=== PATIENT | female | born 1970 | race Caucasian/White ===

== ENCOUNTER 2022-07-14 17:56 | Inpatient (IN) | payer OTHER ==
[~2022-07-14] VITALS: Ht 172.7 cm; Wt 209.4 kg
[2022-07-14] MEDS ORDERED: IBUPROFEN 400 MG TAB ONE (18:04)
[2022-07-14] MEDS ORDERED: ACETAMINOPHEN 325 MG TAB ONE (18:04)
[2022-07-14] MEDS ORDERED: CEFEPIME 2 GM in SODIUM CHLORIDE 0.9% 100 ML IV STA (18:20)
[2022-07-14] MEDS ORDERED: ACETAMINOPHEN 1000 MG/100 ML IV STA (18:26)
[2022-07-14] MEDS ORDERED: SODIUM CHLORIDE 0.9% 1000ML 2,000 ML ONE (18:29)
[2022-07-14] MEDS ORDERED: SODIUM CHLORIDE 0.9% IV ONE (18:30)
[2022-07-14 18:35] LABS: BASOPHILS # (AUTO) 0.1 (0.0-0.1); EOSINOPHILS # (AUTO) 0.1 (0.0-0.4); EOSINOPHILS % 0.5 % (0.0-6.0); HEMATOCRIT 45.9 % (34.2-44.1); HEMOGLOBIN 15.7 g/dL (12.0-16.0); LYMPHOCYTES # (AUTO) 0.8 (1.0-3.2); LYMPHOCYTES % 8.8 % (18.0-39.1); MEAN CORPUSCULAR HEMOGLOBIN 28.2 pg (28-32); MEAN CORPUSCULAR HGB CONC 34.2 g/dL (31-35); MEAN CORPUSCULAR VOLUME 82.4 fL (81-99); MONOCYTES # (AUTO) 0.5 (0.2-0.8); MONOCYTES % 5.6 % (4.4-11.3); NEUTROPHILS # (AUTO) 7.9 (2.1-6.9); NEUTROPHILS % 83.2 % (38.7-80.0); PLATELET COUNT 242 x10e3/uL (140-360); RED BLOOD COUNT 5.57 x10e6/uL (3.6-5.1); RED CELL DISTRIBUTION WIDTH 13.7 % (11.7-14.4)
[2022-07-14 18:49] LABS: ALANINE AMINOTRANSFERASE 25 IU/L (0-55); ALBUMIN 3.2 g/dL (3.5-5.0); ALBUMIN/GLOBULIN RATIO 0.6 (0.8-2.0); ALKALINE PHOSPHATASE 106 IU/L (40-150); ANION GAP 23.4 mmol/L (8-16); BLOOD UREA NITROGEN 20 mg/dL (7-26); BUN/CREATININE RATIO 16 (6-25); CALCIUM 9.7 mg/dL (8.4-10.2); CARBON DIOXIDE 15 mmol/L (22-29); CHLORIDE 91 mmol/L (98-107); CREATININE, SERUM 1.23 mg/dL (0.57-1.11); POTASSIUM 4.4 mmol/L (3.5-5.1); SODIUM 125 mmol/L (136-145)
[2022-07-14 18:53] LABS: GLUCOSE 445 mg/dL (74-118)
[2022-07-14] MEDS ORDERED: IBUPROFEN 400 MG TAB PO ONE (19:15)
[2022-07-14] MEDS ORDERED: ACETAMINOPHEN 325 MG TAB PO ONE (19:15)
[2022-07-14] MEDS ORDERED: SODIUM CHLORIDE 0.9% 1000ML 1,000 ML IV ONE (19:15)
[2022-07-14] MEDS ORDERED: Vancomycin IV 2 GM in SODIUM CHLORIDE 0.9% 250ML 250 ML IV SCH (19:30)
[2022-07-14 19:32] LABS: CLARITY,URINE CLOUDY (CLEAR); COLOR,URINE AMBER (YELLOW); LEUKOCYTE ESTERASE ,URINE TRACE (NEGATIVE); NITRITE,URINE NEGATIVE (NEGATIVE); PROTEIN,URINE DIPSTICK >=300 (NEGATIVE)
[2022-07-14 19:33] LABS: KETONES,URINE 2+ (NEGATIVE); URINE UROBILINOGEN 4 mg/dL (0.2 - 1)
[2022-07-14 19:34] LABS: BACTERIA,URINE MANY /HPF; EPITHELIAL CELLS,URINE MANY /LPF; WBC,URINE (MAN) >50 /HPF (0-5)
[2022-07-14] MEDS ORDERED: SODIUM CHLORIDE 0.9% 250ML 250 ML ONE (20:21)
[2022-07-14 21:06] LABS: INR 1.11; PROTHROMBIN TIME 14.8 seconds (11.9-14.5)
[2022-07-14 21:07] LABS: PARTIAL THROMBOPLASTIN TIME 32.8 seconds (23.8-35.5)
[2022-07-14] MEDS ORDERED: INSULIN REGULAR, HUMAN 3ML VL 100 UNIT in SODIUM CHLORIDE 0.45% 100 ML 100 ML IV SCH ×2 (21:30)
[2022-07-14] MEDS ORDERED: DEXTROSE 50% SYRINGE 50 ML IV PRN (21:30)
[2022-07-14] MEDS ORDERED: ZOLPIDEM TARTRATE 5 MG TAB PO PRN (21:30)
[2022-07-14] MEDS: SODIUM CHLORIDE 0.9% 1000ML 1,000 ML IV SCH (22:14)
[2022-07-14 22:33] LABS: ABG HCO3 17 mmol/L (22-26); ABG PCO2 31 mmHg (35-45); ABG PH 7.34 (7.35-7.45); ABG PO2 81 mmHg (80-105); ABG TCO2 17
[2022-07-14] MEDS ORDERED: INSULIN REGULAR, HUMAN 100 UNIT/1 ML ONE (23:43)
[2022-07-14] MEDS ORDERED: SODIUM CHLORIDE 0.9% 100 ML ONE (23:44)
[2022-07-14 23:45] VITALS: BP 155/87; PULSE 87; RESP 16; TEMP 98.4; O2SAT 93
[2022-07-15] VITALS (31 sets, daily range): BP systolic 88–124; BP diastolic 43–98; PULSE 78–112; RESP 0–29; TEMP 98–99.2; O2SAT 76–99
[2022-07-15] MEDS ORDERED: OZEMPIC1 MG/0.71 (00:28)
[2022-07-15] MEDS ORDERED: LISINOPRIL30 MG PO (00:28)
[2022-07-15] MEDS ORDERED: METFORMIN HCL500 MG PO (00:28)
[2022-07-15] MEDS ORDERED: VENLAFAXINE HC150 MG PO (00:28)
[2022-07-15] MEDS ORDERED: GLIMEPIRIDE2 MG PO (00:28)
[2022-07-15] MEDS ORDERED: ALLOPURINOL100 MG PO (00:28)
[2022-07-15] MEDS: SODIUM CHLORIDE 0.9% 1000ML 1,000 ML IV SCH (06:29)
[2022-07-15] MEDS: ACETAMINOPHEN 325 MG TAB PO PRN ×3 (06:29→21:59)
[2022-07-15 07:06] LABS: BASOPHILS # (AUTO) 0.1 (0.0-0.1); BASOPHILS % 0.7 % (0.0-1.0); EOSINOPHILS % 0.1 % (0.0-6.0); HEMATOCRIT 35.7 % (34.2-44.1); HEMOGLOBIN 11.9 g/dL (12.0-16.0); LYMPHOCYTES # (AUTO) 0.6 (1.0-3.2); LYMPHOCYTES % 7.5 % (18.0-39.1); MEAN CORPUSCULAR HGB CONC 33.3 g/dL (31-35); MONOCYTES # (AUTO) 1.2 (0.2-0.8); MONOCYTES % 14.7 % (4.4-11.3); NEUTROPHILS # (AUTO) 6.3 (2.1-6.9); NEUTROPHILS % 76.3 % (38.7-80.0); PLATELET COUNT 179 x10e3/uL (140-360); RED BLOOD COUNT 4.25 x10e6/uL (3.6-5.1); RED CELL DISTRIBUTION WIDTH 13.4 % (11.7-14.4)
[2022-07-15 07:21] LABS: ALBUMIN 2.3 g/dL (3.5-5.0); ALBUMIN/GLOBULIN RATIO 0.6 (0.8-2.0); ANION GAP 13.7 mmol/L (8-16); CREATININE, SERUM 0.92 mg/dL (0.57-1.11); POTASSIUM 3.7 mmol/L (3.5-5.1)
[2022-07-15] MEDS ORDERED: MAGNESIUM SULFATE 2GM/50ML 50 ML IV ONE (08:15)
[2022-07-15] MEDS ORDERED: POTASSIUM CHLORIDE 20MEQ/100ML 200 ML IV ONE (08:15)
[2022-07-15 09:08] LABS: CHOL/HDL RATIO 2.2 (3.0-3.6)
[2022-07-15] MEDS: Vancomycin IV 1 GM in SODIUM CHLORIDE 0.9% 250ML 250 ML IV SCH ×2 (09:34→19:34)
[2022-07-15] MEDS: LISINOPRIL 20 MG TAB PO SCH (09:36)
[2022-07-15 10:46] LABS: BAND NEUTROPHILS % (MANUAL) 11 %; LYMPHOCYTES % (MANUAL) 8 % (19-48); MONOCYTES % (MANUAL) 12 % (3.4-9.0); NEUTROPHILS % (MANUAL) 68 % (40-74); PLATELET ESTIMATE ADEQUATE; PLATELET MORPHOLOGY COMMENT NORMAL
[2022-07-15 14:18] LABS: ALBUMIN 2.5 g/dL (3.5-5.0); ALBUMIN/GLOBULIN RATIO 0.5 (0.8-2.0); ANION GAP 14.3 mmol/L (8-16); CALCIUM 8.6 mg/dL (8.4-10.2); CREATININE, SERUM 0.9 mg/dL (0.57-1.11); POTASSIUM 4.3 mmol/L (3.5-5.1)
[2022-07-15] MEDS: MUPIROCIN 2% OINT 22 GM TUBE TOP SCH (21:04)
[2022-07-15] MEDS: ONDANSETRON HCL INJ 2MG/ML 2ML 2 MG/ML VIAL IV PRN (21:59)
[2022-07-15] MEDS ORDERED: INSULIN REGULAR, HUMAN 100 UNIT/1 ML ONE (22:08)
[2022-07-16] VITALS (15 sets, daily range): BP systolic 95–130; BP diastolic 58–74; PULSE 76–106; RESP 11–21; TEMP 98.6–99; O2SAT 41–100
[2022-07-16] MEDS: ACETAMINOPHEN 325 MG TAB PO PRN (05:32)
[2022-07-16 06:52] LABS: BASOPHILS % 0.6 % (0.0-1.0); EOSINOPHILS % 0.6 % (0.0-6.0); HEMATOCRIT 35.7 % (34.2-44.1); HEMOGLOBIN 11.6 g/dL (12.0-16.0); LYMPHOCYTES # (AUTO) 0.9 (1.0-3.2); LYMPHOCYTES % 12.9 % (18.0-39.1); MEAN CORPUSCULAR HEMOGLOBIN 27.8 pg (28-32); MEAN CORPUSCULAR HGB CONC 32.5 g/dL (31-35); MEAN CORPUSCULAR VOLUME 85.4 fL (81-99); MONOCYTES # (AUTO) 1.1 (0.2-0.8); MONOCYTES % 16.9 % (4.4-11.3); NEUTROPHILS # (AUTO) 4.5 (2.1-6.9); NEUTROPHILS % 68.1 % (38.7-80.0); PLATELET COUNT 164 x10e3/uL (140-360); RED BLOOD COUNT 4.18 x10e6/uL (3.6-5.1); RED CELL DISTRIBUTION WIDTH 13.5 % (11.7-14.4)
[2022-07-16 07:22] LABS: ALBUMIN 2.1 g/dL (3.5-5.0); ALBUMIN/GLOBULIN RATIO 0.5 (0.8-2.0); ANION GAP 11.5 mmol/L (8-16); CALCIUM 8.1 mg/dL (8.4-10.2); CREATININE, SERUM 0.8 mg/dL (0.57-1.11); POTASSIUM 3.5 mmol/L (3.5-5.1)
[2022-07-16] MEDS ORDERED: POTASSIUM CHLORIDE 20MEQ/100ML 200 ML IV ONE (08:00)
[2022-07-16] MEDS: MUPIROCIN 2% OINT 22 GM TUBE TOP SCH ×2 (09:03→20:14)
[2022-07-16] MEDS: LISINOPRIL 20 MG TAB PO SCH (09:03)
[2022-07-16] MEDS: VENLAFAXINE HCL 75 MG CAPCR PO SCH (10:15)
[2022-07-16] MEDS: ONDANSETRON HCL INJ 2MG/ML 2ML 2 MG/ML VIAL IV PRN ×2 (13:17→23:28)
[2022-07-16] MEDS: NYSTATIN 15 GM POWDER UD BTL TOP SCH (17:52)
[2022-07-16] MEDS ORDERED: INSULIN GLARGINE 100 UNITS/ML VIAL SQ ONE (22:15)
[2022-07-16] MEDS: SODIUM CHLORIDE 0.45% 1,000 ML IV SCH (22:34)
[2022-07-17] VITALS (8 sets, daily range): BP systolic 110–129; BP diastolic 52–65; PULSE 79–94; RESP 16–20; TEMP 98.2–98.7; O2SAT 95–98
[2022-07-17] MEDS: ACETAMINOPHEN 325 MG TAB PO PRN ×2 (03:55→17:20)
[2022-07-17 07:45] LABS: BASOPHILS % 0.5 % (0.0-1.0); EOSINOPHILS # (AUTO) 0.1 (0.0-0.4); EOSINOPHILS % 0.8 % (0.0-6.0); HEMOGLOBIN 11.3 g/dL (12.0-16.0); LYMPHOCYTES # (AUTO) 1.4 (1.0-3.2); LYMPHOCYTES % 18.6 % (18.0-39.1); MEAN CORPUSCULAR HEMOGLOBIN 27.6 pg (28-32); MEAN CORPUSCULAR HGB CONC 33.2 g/dL (31-35); MEAN CORPUSCULAR VOLUME 83.1 fL (81-99); MONOCYTES # (AUTO) 0.9 (0.2-0.8); MONOCYTES % 11.7 % (4.4-11.3); NEUTROPHILS # (AUTO) 5.1 (2.1-6.9); NEUTROPHILS % 67.4 % (38.7-80.0); PLATELET COUNT 168 x10e3/uL (140-360); RED BLOOD COUNT 4.09 x10e6/uL (3.6-5.1); RED CELL DISTRIBUTION WIDTH 13.7 % (11.7-14.4)
[2022-07-17 08:12] LABS: ALBUMIN 2.1 g/dL (3.5-5.0); ALBUMIN/GLOBULIN RATIO 0.5 (0.8-2.0); ANION GAP 9.9 mmol/L (8-16); CREATININE, SERUM 0.71 mg/dL (0.57-1.11); POTASSIUM 3.9 mmol/L (3.5-5.1)
[2022-07-17] MEDS: NYSTATIN 15 GM POWDER UD BTL TOP SCH ×2 (09:00→17:18)
[2022-07-17] MEDS: LISINOPRIL 20 MG TAB PO SCH (09:00)
[2022-07-17] MEDS: INSULIN REGULAR, HUMAN 100 UNIT/1 ML SQ SCH ×4 (09:01→21:46)
[2022-07-17] MEDS: VENLAFAXINE HCL 75 MG CAPCR PO SCH (09:04)
[2022-07-17] MEDS: MUPIROCIN 2% OINT 22 GM TUBE TOP SCH ×2 (09:05→21:53)
[2022-07-17] MEDS: SODIUM CHLORIDE 0.45% 1,000 ML IV SCH (12:35)
[2022-07-17 15:43] LABS: ANION GAP 12.7 mmol/L (8-16); CALCIUM 8.4 mg/dL (8.4-10.2); CREATININE, SERUM 0.73 mg/dL (0.57-1.11); MAGNESIUM 1.9 MG/DL (1.3-2.1); POTASSIUM 3.7 mmol/L (3.5-5.1)
[2022-07-17] MEDS ORDERED: FLUCONAZOLE 200 MG/100 ML 100 ML IV ONE (21:15)
[2022-07-18] VITALS (8 sets, daily range): BP systolic 112–142; BP diastolic 59–77; PULSE 73–87; RESP 20; TEMP 98.3–98.8; O2SAT 93–98
[2022-07-18] MEDS: SODIUM CHLORIDE 0.45% 1,000 ML IV SCH ×2 (00:17→14:22)
[2022-07-18] MEDS: ACETAMINOPHEN 325 MG TAB PO PRN (02:30)
[2022-07-18] MEDS: ONDANSETRON HCL INJ 2MG/ML 2ML 2 MG/ML VIAL IV PRN (02:30)
[2022-07-18] MEDS: INSULIN REGULAR, HUMAN 100 UNIT/1 ML SQ SCH ×4 (08:30→21:56)
[2022-07-18] MEDS: GLIMEPIRIDE 2 MG TAB PO SCH (08:30)
[2022-07-18] MEDS ORDERED: NON-FORMULARY MEDICATION (Venlafaxine Hcl (Venlafaxine Hcl Er) 150 MG) PO SCH (09:00)
[2022-07-18] MEDS: METFORMIN HCL 500 MG TAB PO SCH (09:01)
[2022-07-18] MEDS: ALLOPURINOL 100 MG TAB PO SCH (09:02)
[2022-07-18] MEDS: VENLAFAXINE HCL 75 MG CAPCR PO SCH (09:02)
[2022-07-18] MEDS: LISINOPRIL 20 MG TAB PO SCH (09:02)
[2022-07-18] MEDS: NYSTATIN 15 GM POWDER UD BTL TOP SCH ×2 (09:03→17:06)
[2022-07-18] MEDS: MUPIROCIN 2% OINT 22 GM TUBE TOP SCH ×2 (09:03→21:48)
[2022-07-18] MEDS ORDERED: ONDANSETRON HCL 4 MG ORAL DISINTEGRATING TAB PO PRN (17:15)
[2022-07-18] MEDS: INSULIN GLARGINE 100 UNITS/ML VIAL SQ SCH (21:56)
[2022-07-19] VITALS: BP 134/64; PULSE 88; RESP 20; TEMP 98.8; O2SAT 95
[2022-07-19 04:00] VITALS: BP 115/60; PULSE 75; RESP 20; TEMP 98.6; O2SAT 92
[2022-07-19 06:20] LABS: BASOPHILS # (AUTO) 0.2 (0.0-0.1); BASOPHILS % 1.6 % (0.0-1.0); EOSINOPHILS # (AUTO) 0.3 (0.0-0.4); EOSINOPHILS % 2.9 % (0.0-6.0); HEMATOCRIT 39.6 % (34.2-44.1); HEMOGLOBIN 12.6 g/dL (12.0-16.0); LYMPHOCYTES # (AUTO) 2.7 (1.0-3.2); LYMPHOCYTES % 28.4 % (18.0-39.1); MEAN CORPUSCULAR HEMOGLOBIN 27.6 pg (28-32); MEAN CORPUSCULAR HGB CONC 31.8 g/dL (31-35); MEAN CORPUSCULAR VOLUME 86.7 fL (81-99); MONOCYTES # (AUTO) 0.7 (0.2-0.8); MONOCYTES % 7.5 % (4.4-11.3); NEUTROPHILS # (AUTO) 5.1 (2.1-6.9); NEUTROPHILS % 53.4 % (38.7-80.0); PLATELET COUNT 292 x10e3/uL (140-360); RED BLOOD COUNT 4.57 x10e6/uL (3.6-5.1); RED CELL DISTRIBUTION WIDTH 13.9 % (11.7-14.4)
[2022-07-19 06:42] LABS: ANION GAP 12.8 mmol/L (8-16); CALCIUM 8.7 mg/dL (8.4-10.2); CREATININE, SERUM 0.68 mg/dL (0.57-1.11); POTASSIUM 3.8 mmol/L (3.5-5.1)
[2022-07-19] MEDS: INSULIN REGULAR, HUMAN 100 UNIT/1 ML SQ SCH ×4 (07:30→21:13)
[2022-07-19 08:35] VITALS: BP 125/57; PULSE 75; RESP 20; TEMP 98.1; O2SAT 95
[2022-07-19] MEDS: INSULIN GLARGINE 100 UNITS/ML VIAL SQ SCH ×2 (09:00→21:13)
[2022-07-19 09:13] LABS: LYMPHOCYTES % (MANUAL) 36 % (19-48); METAMYELOCYTES % (MANUAL) 1 % (0-0); MYELOCYTES % (MANUAL) 1 % (0-0); NEUTROPHILS % (MANUAL) 62 % (40-74); PLATELET ESTIMATE ADEQUATE; PLATELET MORPHOLOGY COMMENT NORMAL; RBC MORPHOLOGY COMMENT NORMAL
[2022-07-19] MEDS: LISINOPRIL 20 MG TAB PO SCH (11:16)
[2022-07-19] MEDS: GLIMEPIRIDE 2 MG TAB PO SCH (11:16)
[2022-07-19] MEDS: VENLAFAXINE HCL 75 MG CAPCR PO SCH (11:16)
[2022-07-19] MEDS: ALLOPURINOL 100 MG TAB PO SCH (11:16)
[2022-07-19] MEDS: METFORMIN HCL 500 MG TAB PO SCH (11:17)
[2022-07-19 12:12] VITALS: BP 123/64; PULSE 72; RESP 20; TEMP 98.1; O2SAT 95
[2022-07-19] MEDS: MUPIROCIN 2% OINT 22 GM TUBE TOP SCH ×2 (13:22→21:08)
[2022-07-19] MEDS: NYSTATIN 15 GM POWDER UD BTL TOP SCH ×2 (13:22→18:30)
[2022-07-19] MEDS: SODIUM CHLORIDE 0.45% 1,000 ML IV SCH (14:34)
[2022-07-19] MEDS: ACETAMINOPHEN 325 MG TAB PO PRN (14:38)
[2022-07-19 16:01] VITALS: BP 134/69; PULSE 72; RESP 20; TEMP 98.4; O2SAT 94
[2022-07-19 21:15] VITALS: BP 157/67; PULSE 64; RESP 20; TEMP 98.4; O2SAT 93
[2022-07-20] MEDS: SODIUM CHLORIDE 0.45% 1,000 ML IV SCH (03:37)
[2022-07-20] MEDS: INSULIN REGULAR, HUMAN 100 UNIT/1 ML SQ SCH ×2 (07:30→13:38)
[2022-07-20 08:20] VITALS: BP 132/61; PULSE 72; RESP 20; TEMP 97.9; O2SAT 94
[2022-07-20] MEDS: ALLOPURINOL 100 MG TAB PO SCH (08:27)
[2022-07-20] MEDS: VENLAFAXINE HCL 75 MG CAPCR PO SCH (08:27)
[2022-07-20] MEDS: METFORMIN HCL 500 MG TAB PO SCH (08:27)
[2022-07-20] MEDS: GLIMEPIRIDE 2 MG TAB PO SCH (08:28)
[2022-07-20] MEDS: LISINOPRIL 20 MG TAB PO SCH (08:28)
[2022-07-20] MEDS: INSULIN GLARGINE 100 UNITS/ML VIAL SQ SCH (08:41)
[2022-07-20 09:00] VITALS: BP 132/61; PULSE 72; RESP 20; TEMP 97.9; O2SAT 94
[2022-07-20 12:09] VITALS: BP 142/68; PULSE 82; RESP 20; TEMP 98.6; O2SAT 94
[2022-07-20] MEDS: MUPIROCIN 2% OINT 22 GM TUBE TOP SCH (13:35)
[2022-07-20] MEDS: NYSTATIN 15 GM POWDER UD BTL TOP SCH ×2 (13:35→16:14)
[2022-07-20 15:50] VITALS: BP 130/66; PULSE 63; RESP 20; TEMP 98.4; O2SAT 96
[2022-07-20] MEDS ORDERED: KEFLEX125 MG/5 M PO (16:06)
[2022-07-20] MEDS ORDERED: CEFDINIR300 MG PO (16:07)
[2022-07-20] MEDS ORDERED: Insulin Glargine SQ (16:12)
[2022-07-20] MEDS ORDERED: LEVEMIR100 UNIT/1 SC (16:12)
[2022-07-20] MEDS ORDERED: LISINOPRIL30 MG PO (16:14)
[2022-07-20] MEDS ORDERED: ALLOPURINOL100 MG PO (16:14)
[2022-07-20] MEDS ORDERED: METFORMIN HCL500 MG PO (16:14)
[2022-07-20] MEDS ORDERED: GLIMEPIRIDE2 MG PO (16:14)
[2022-07-20] MEDS ORDERED: VENLAFAXINE HC150 MG PO (16:14)
== END 2022-07-20 17:38 | disposition home or self-care (01) | DRG 638 ==
LOC: ER 18:08 → ERHOLD 21:06 → ICU 23:24 → MED/SURG2 07-17 12:00
PROVIDERS: ADMIT Internal Medicine; ATTEND Internal Medicine
PROC: B548ZZA Ultrasonography of Superior Vena Cava, Guidance (ICD-10-PCS; principal; 2022-07-14)
PROC: 02HV33Z Insertion of Infusion Device into Superior Vena Cava, Percutaneous Approach (ICD-10-PCS; principal; 2022-07-14)
DX: E11.10 Type 2 diabetes mellitus with ketoacidosis without coma (principal); E66.2 Morbid (severe) obesity with alveolar hypoventilation; N39.0 Urinary tract infection, site not specified; Z68.45 Body mass index [BMI] 70 or greater, adult; E87.1 Hypo-osmolality and hyponatremia; Z16.11 Resistance to penicillins; B96.20 Unspecified Escherichia coli [E. coli] as the cause of diseases classified elsewhere; I10 Essential (primary) hypertension; R53.81 Other malaise; E87.6 Hypokalemia; Z74.2 Need for assistance at home and no other household member able to render care; Z88.1 Allergy status to other antibiotic agents; Z20.822 Contact with and (suspected) exposure to COVID-19
CPT/HCPCS: 36415; 36569; 36600; 51700; 71045; 76700; 80048; 80053; 80061; 81001; 82805; 82948; 83605; 83735; 84702; 85025; 85610; 85730; 87040; 87071; 87086; 87186; 87205; 87400; 93005; 96361; 96372; 99252; 99284; J0692; J0696; J1450; J1815; J2405; J3475; J3480; J7030; J7050